=== PATIENT | male | born 1960 ===

== ENCOUNTER 2016-12-29 18:53 | Emergency (ER) | payer BC ==
--- NOTE | ~2016-12-29 | OR ---
PATIENT'S NAME: GILLIAN JOSE [facility] AGE: 56 Y [address] ROOM: [place] [address] LOCATION: [facility] ADMIT DATE: 12/29/2016 OR/Procedure Report DISCHARGE DATE: 12/29/2016 FAMILY PHYSICIAN: Physician, Unknown ATTENDING PHYSICIAN: Benja Arce SURGEON: Cesar Garibay DO SHOW GIRL: DATE OF PROCEDURE: 12/29/2016 PREOPERATIVE DIAGNOSIS: Left subtalar dislocation with fracture about the talus. POSTOPERATIVE DIAGNOSIS: Left subtalar dislocation with fracture about the talus, pending CT scan after reduction. PROCEDURE: Closed reduction under conscious sedation. ANESTHESIA: Naeem. INDICATIONS: Gillian Jose is a pleasant 56-year-old male who had a fall 5 feet from a ladder injuring his left ankle. He had dislocation about the talus. He understands the risks, benefits, potential complications, and consent to reduce was obtained. Single reduction attempt confirmed near anatomic on AP, lateral, and mortise views. There is subtle signs seen around the talus both near the posterior process and over the medial body. CT scan will be ordered. He had normal sensation and minimal swelling. There are no open wounds or lesions. A well-padded posterior U splint was applied. He will get crutch training and understand the importance of non-weight bearing and follow up with my foot and ankle specialist, Dr. Friedman, next week. He understands to keep it elevated, nonweightbearing, notify if any increased pain, swelling, or other concerns. CESAR GARIBAY DO PH/modl /[id number] d: 12/30/163 t: 12/31/16 1819, OPERATIVE SUMMARY
--- NOTE | ~2016-12-29 | ER ---
PATIENT'S NAME: GILLIAN JOSE [facility] AGE: 56 Y [address] ROOM: [place] [address] LOCATION: [facility] ADMIT DATE: 12/29/2016 ER/Outpatient Report DISCHARGE DATE: 12/29/2016 FAMILY PHYSICIAN: Physician, Unknown ATTENDING PHYSICIAN: Benja Arce Time of Arrival: 1854 hours. Time of Evaluation: 1854 hours. CHIEF COMPLAINT: Left ankle injury. HISTORY OF PRESENT ILLNESS: The patient states just prior to arrival, he was standing on a ladder about 5 feet. He was on some [place], started to tip. He tried to catch himself by his left leg and ended up landing on the left ankle area. Denies hitting his head. Did not have any loss of consciousness. Denied having any other injury with the fall. States he has good sensation to his toes. Denies any numbness. ALLERGIES: NO KNOWN ALLERGIES. MEDICATIONS: No current medications. PAST MEDICAL HISTORY: Benign. PAST SURGICAL HISTORY: Negative. Denies use of tobacco or drugs. Drinks alcohol on a social basis only, has not had any today. REVIEW OF SYSTEMS: All negative other than those mentioned in the HPI. PHYSICAL EXAMINATION: VITAL SIGNS: He weighs 90 kg, blood pressure is 137/86, pulse of 87, respirations 16, temp of 98.2, O2 saturation is 94% on room air. GENERAL: He is awake, alert, and oriented x4. SKIN: [place], warm, and dry. RESPIRATIONS: Even and nonlabored. Lung sounds are clear throughout. HEART: Regular rate and rhythm. He does have a positive pedal pulse. EXTREMETIES: Left ankle area is deformed. No open skin areas. The patient has good sensation to his toes. He is able to wiggle his toes. Foot is elevated and ice applied. PATIENT'S NAME: GILLAIN JOSE [facility] AGE: 56 Y [address] ROOM: [place] [address] LOCATION: [facility] ADMIT DATE: 12/29/2016 ER/Outpatient Report DISCHARGE DATE: 12/29/2016 FAMILY PHYSICIAN: Physician, Unknown ATTENDING PHYSICIAN: Benja Arce LABORATORY DATA AND X-RAYS: X-ray was completed, reviewed with Dr. Arce. Dr. Meade did also review it. He reports the patient has a subtalar joint dislocation with involvement of the talonavicular joint. EMERGENCY DEPARTMENT COURSE: IV normal saline was initiated. The patient was given fentanyl [address] Garibay was contacted by Dr. Arce after he evaluated the patient. Dr. Garibay did come in to see the patient. Anesthesia was contacted. The patient was given IV sedation, and the dislocated ankle was reduced by Dr. Garibay. The patient tolerated the procedure well. A splint was applied by Dr. Garibay. The patient woke up, was alert and oriented. No respiratory distress. He had good sensation to his toes. Able to wiggle his toes. He had strong pulses. CT scan of the left foot was completed and reviewed by Dr. Garibay. IMPRESSION: Dislocated left ankle with fracture. PLAN: The patient is to keep the splint on, keep it clean and dry. Elevate it tonight. Crutches. He can do toe-touch weightbearing only. Prescriptions were written by Dr. Garibay for [place] for pain. The patient is to follow up with Dr. Friedman in 1 week, sooner if he has complications. The patient and his verbalized understanding. JULIA BUNN APRN FOR MD JAYLIN CALDERON/liza /[id number] d: 12/30/16 0034 t: 01/01/17 1232, OUTPATIENT REPORT
--- NOTE | ~2016-12-29 | CON ---
PATIENT'S NAME: GILLIAN JOSE [facility] AGE: 56 Y [address] ROOM: [place] [address] LOCATION: [facility] ADMIT DATE: 12/29/2016 Consultation DISCHARGE DATE: 12/29/2016 FAMILY PHYSICIAN: Physician, Unknown ATTENDING PHYSICIAN: Benja Arce CHIEF COMPLAINT: Left ankle pain. HISTORY OF PRESENT ILLNESS: This is a 56-year-old male, who was up on a ladder approximately 5 feet, where he slipped, fell, landing on his left ankle. He had immediate pain and deformity located at his left ankle. He denies any other trauma or injuries. No symptoms prior to the fall. He did not lose consciousness and reports isolated injury to the left ankle. PAST MEDICAL HISTORY: Reviewed. CURRENT MEDICATIONS: None. ALLERGIES: REVIEWED. SOCIAL HISTORY: He does not smoke. Uses alcohol on occasion. REVIEW OF SYMPTOMS: Negative other than above. PHYSICAL EXAMINATION: GENERAL: The patient is alert and oriented x3, in no acute distress. HEENT: Normocephalic, atraumatic. NECK: Supple. Trachea midline. LUNGS: The patient breathes without use of accessory muscles. MUSCULOSKELETAL: There is no rib pain. Moves bilateral upper extremities and clavicles are nontender to palpation. He has no pain in his upper and right lower extremity. He has obvious deformity about his left ankle with subtalar dislocation. RECOMMENDATION I recommend closed reduction. He has been consented for sedation, Naeem , one of the anesthesia. I was able to provide anesthesia. He understands the risks, benefits, and potential complications of the anesthetics including potential for anaphylactic reaction. He understands the potential for entrapment PATIENT'S NAME: GILLIAN JOSE [facility] AGE: 56 Y [address] ROOM: [place] [address] LOCATION: [facility] ADMIT DATE: 12/29/2016 Consultation DISCHARGE DATE: 12/29/2016 FAMILY PHYSICIAN: Physician, Unknown ATTENDING PHYSICIAN: Benja Arce vessels, AVN, nonunion, and malunion. He understands he can develop posttraumatic arthritis with chronic symptomatic pain from this type of injury. Having been well-informed single reduction attempt reduced the dislocation. X-rays 3 views confirmed anatomic reduction. There were subtle changes seen about the body of the talus medially as well as posterior on plain films. Therefore, CT scan was ordered. There appears to be a small posterior talar process fracture adjacent to his os trigonum. There was also some comminution noted over the medial portion of the body of the talus. It is anatomic at the joint line with both the calcaneus and tibia. His mortise is anatomic. He was placed in a posterior U-splint, well-padded, and we will get crutch training. He will be nonweightbearing or toe-touch at [place]. I will have him follow up at my foot and ankle specialist, Dr. Friedman, within a week. He understands nonoperative treatment. He need to be in short leg cast for at least 6 weeks versus operative with K-wire fixation if greater than 2 mm of displacement. The patient's neurovascular status was normal pre and post reduction. He had no other injuries other than a slight abrasion over his right anterior tibia without tenderness in that region. He understands, he should elevate the extremity, notify us if he develops any increased pain, signs of compartment syndrome, any numbness or tingling. He will continue to ice and elevate the extremity and be non-weightbearing. He will follow up later this week at [facility]. CESAR HIDALGO DO PH/modl /[id number] d: 12/30/1651 t: 12/31/16 1821, CONSULTATION REPORT
== END 2016-12-29 20:36 | disposition disaster alternative care site (69) ==
LOC: GACC 18:53
PROC: 0SSGXZZ Reposition Left Ankle Joint, External Approach (ICD-10-PCS; principal; 2016-12-29)
DX: S92.102A Unspecified fracture of left talus, initial encounter for closed fracture (principal); W11.XXXA Fall on and from ladder, initial encounter
CPT/HCPCS: J3010; J7030